=== PATIENT | female | born 1945 | race Caucasian/White ===

== ENCOUNTER 2022-03-24 08:52 | Outpatient (CLI) | payer MEDICARE | END 2022-03-24 08:53 | disposition home or self-care (01) | LOC: CSHULT 08:52 | PROVIDERS: ATTEND Otolaryngology Plastic Surgery within the Head & Neck | DX: E04.1 Nontoxic single thyroid nodule (principal); E04.9 Nontoxic goiter, unspecified | CPT/HCPCS: 76536 ==

== ENCOUNTER 2023-03-15 13:23 | Outpatient (CLI) | payer MEDICARE | END 2023-03-15 13:24 | disposition home or self-care (01) | LOC: CSHULT 13:23 | PROVIDERS: ATTEND Otolaryngology Plastic Surgery within the Head & Neck | DX: E04.1 Nontoxic single thyroid nodule (principal); E04.2 Nontoxic multinodular goiter | CPT/HCPCS: 76536 ==

== ENCOUNTER 2023-07-30 12:20 | Outpatient (CLI) | payer MEDICARE ==
[2023-07-30] MEDS ORDERED: Iopamidol 370 76% 100 ML VIAL ONE (14:25)
== END 2023-07-30 12:21 | disposition home or self-care (01) ==
LOC: CSHCT 12:20
PROVIDERS: ATTEND Otolaryngology Otolaryngic Allergy
DX: H93.A9 Pulsatile tinnitus, unspecified ear (principal); I65.22 Occlusion and stenosis of left carotid artery
CPT/HCPCS: 70496; 82565; 93880; Q9967

== ENCOUNTER 2023-12-29 16:56 | Emergency (ER) | payer MEDICARE ==
[~2023-12-29 16:56] MED LIST: Iopamidol 300 61% 100 ML VIAL FS ONE
[2023-12-29] MEDS ORDERED: Ondansetron PF 4 MG/2 ML Vial ONE (17:16)
[2023-12-29] MEDS ORDERED: Ketorolac Tromethamine 30 MG (1 mL) VIAL ONE (17:16)
[2023-12-29 17:28] LABS: #Basophils 0.02 10x3/uL (0.0-0.2); #Eosinphils 0.07 10x3/uL (0.0-0.5); #Neutrophils 9.43 10x3/uL (1.5-8.4); %Basophils 0.2 % (0.0-2.0); %Eosinophils 0.6 % (0.0-6.0); %Lymphocytes 6.1 % (18.0-47.0); %Monocytes 7.3 % (0.0-10.0); %Neutrophils 85.6 % (40.0-75.0); Hemoglobin 12.3 g/dL (12.0-15.5); Mean Corpuscular HGB CONC 34.2 g/dL (32.0-36.0); Mean Corpuscular Hemoglobin 29.9 pg (27.0-33.0); Mean Corpuscular Volume 87.4 fL (81.6-98.3); Mean Platelet Volume 9.6 fL (7.4-10.4); Platelet Count 191 10x3/uL (150-450); RBC Distribution Width 12.8 % (11.5-14.5); Red Blood Cell (RBC) Count 4.12 10x6/uL (3.90-5.03)
[2023-12-29 17:39] LABS: ALT (SGPT) 20 U/L (8-55); AST (SGOT) 29 U/L (5-34); Albumin 4.1 g/dL (3.4-4.8); Alkaline Phosphatase 62 U/L (40-110); Anion Gap 17 mmol/L (10-20); BUN (Urea Nitrogen) 18 mg/dL (9.8-20.1); Bilirubin, Total 0.6 mg/dL (0.2-1.2); Calc. Creatinine Clearance 0 mL/min (70-130); Calcium 9.8 mg/dL (7.8-10.44); Carbon Dioxide 22 mmol/L (23-31); Chloride 107 mmol/L (98-107); Estimated GFR 67; Globulin 2.4 g/dL (2.4-3.5); Glucose 104 mg/dL (83-110); Lipase 23 U/L (8-78); Potassium 4.5 mmol/L (3.5-5.1); Protein, Total 6.5 g/dL (5.8-8.1); Sodium 141 mmol/L (136-145)
[2023-12-29 18:56] LABS: Bilirubin Neg (Negative); Blood, Urine Negative (Negative); Clarity Clear (Clear); Glucose, Urine (Dipstick) Normal (Negative); Ketone, Urine 15 mg/dL (Negative); Leukocyte Negative (Negative); Nitrite Negative (Negative); Protein, Urine (Dipstick) Negative (Neg-Trace); Urobilinogen Normal mg/dL (Less than 2); pH, Urine 6.5 (5.0-9.0)
[2023-12-29 19:02] LABS: Bacteria/HPF Rare-Few HPF (None Seen); CAUTI Indications for Culture Pelvic or flank pain; RBC/HPF 0-3 HPF (0-3); Squamous Epithelial 0-3 HPF (0-3); WBC/HPF None Seen HPF (0-3)
[2023-12-29 19:03] LABS: Urine Culture Reflex No No
== END 2023-12-29 19:11 | disposition home or self-care (01) ==
LOC: CSHERS 16:56
DX: K57.92 Diverticulitis of intestine, part unspecified, without perforation or abscess without bleeding (principal); I10 Essential (primary) hypertension
CPT/HCPCS: 74177; 80053; 81001; 83690; 85025; 93005; 96361; 96374; 96375; 99284; J1885; J2405; Q9967; 36415